=== PATIENT | female | born 1950 | race Caucasian/White ===

== ENCOUNTER → 2017-01-30 13:00 | Emergency (ER) | payer OTHER ==
[~2017-01-30 13:00] MED LIST: ACETAMINOPHEN PO; ADVIL200 M1 PO; ALISKIREN PO; APRESOLINE PO; ASCORBIC ACID500 MG PO; ASPIRIN PO; ASPIRINEC PO; AVAPRO PO; CLONIDINE HCL0.1 MG PO; CLONIDINE PO; COMBIVENT INH14.7 GM INH; DICYCLOMINE HCL20 MG PO; DIOVAN PO; DIOVAN160 MG PO; DIOVAN320 MG PO; FAMOTIDINE PO; HYDROCHLOROTHIAZIDE PO; HYDROCODON-ACE1 EAC5 PO; HYDROCODONE-APA1 T49 PO; HYDROCODONE-APA1 T54 PO; IBUPROFEN PO; LASIX20 MG PO; LEVAQUIN PO; LIDODERM30 EA TOP; LIPITOR PO; LISINOPRIL PO; LISINOPRIL10 MG PO; LOPRESSOR PO; LORTAB 10-5001 EACH PO; LORTAB 10/500 T1 TAB PO; LOSARTAN POTASS50 MG PO; MACROBID100 MG PO; MUCINEX D ER T1 EACH PO; MUCINEX DM1 TAB.SR . PO; MUCINEX PO; NICOTINE T1 PATCH .2 TOP; NORCO 10-325 TA1 TAB PO; OXYCONTIN PO; OXYCONTIN20 MG PO; PLAVIX PO; RITE-AID PHARMACY; TEKTURNA; TEKTURNA HCT 301 TAB PO; TEKTURNA PO; TEKTURNA300 MG PO; TOPROL XL PO; VICODIN 5/500 T1 TAB PO; VIT B-12 PO; VIT C PO; VITAMIN C; VITAMIN C500 MG PO; [UNRECOGNIZED DRUG - OTHER]
== END | disposition left against medical advice (07) ==
LOC: CED 13:00
DX: Z53.21 Procedure and treatment not carried out due to patient leaving prior to being seen by health care provider (principal)

== ENCOUNTER → 2017-03-17 | Outpatient (CLI) | payer OTHER ==
[2017-03-17 11:56] LABS: ALBUMIN SERUM 4.1 g/dL (3.5-5.0); BILIRUBIN,TOTAL 0.1 mg/dL (0.2-2.0); CALCIUM SERUM 8.4 mg/dL (8.4-10.2); GLOM FILT RATE Estimated 57.5 mL/min (>60); POTASSIUM 3.9 mmol/L (3.5-5.1); PROTEIN TOTAL SERUM 7.3 g/dL (6.0-8.3)
== END | disposition home or self-care (01) ==
LOC: SLAB 11:08
PROVIDERS: Internal Medicine Nephrology
DX: N18.3 Chronic kidney disease, stage 3 (moderate) (principal)
CPT/HCPCS: 36415; 80053

== ENCOUNTER → 2017-06-22 | Day surgery (SDC) | payer OTHER ==
--- NOTE | ~2017-06-22 | OR ---
Unit #: [id number] #: [id number] Patient: DUTCH GOMES [id number] [address] [address] [id number] MR#: [id number] NAME: DUTCH GOMES ROOM: Date of Procedure: 06/22/2017 Admission Date: 06/22/2017 Surgeon: Dru Snyder M.D. : 1950 Attending Physician: Dru Snyder M.D. Primary Care Physician: Reese Brown M.D. OPERATIVE REPORT JOB NOTE: CC: [facility] PREOPERATIVE DIAGNOSES Herniated nucleus pulposus, back pain, radiculopathy, degenerative spine disease. POSTOPERATIVE DIAGNOSES Herniated nucleus pulposus, back pain, radiculopathy, degenerative spine disease. PROCEDURE PERFORMED Lumbar epidural steroid injection with intravenous sedation and fluoroscopic guidance for needle localization. INDICATIONS FOR PROCEDURE The patient is a 67-year-old female with return of back, bilateral hip pain, some leg pain due to known multilevel multifactorial severe degenerative disk and spine disease. She has left-sided L3-L4 disk herniation and right-sided L4-L5 disk herniation, broad-based bulge with bilateral facet disease, severe degeneration at L5-S1 level bilaterally, effacement at L5 nerve roots. She is a poor surgical candidate. Based on history, pathology, and symptomatology, plan is to repeat epidural steroid injection. DESCRIPTION OF PROCEDURE The patient was placed in a seated position. Standard monitors were applied. 2 mg of Versed were given for sedation and anxiolysis, which were adequate. Vital signs remained stable. Sterile prep and drape then of the lumbar area was performed. The skin at the L4-L5 level was localized with 1% lidocaine. An 18-gauge MED[employer]onte[employer] needle was then advanced via loss of resistance technique and fluoroscopic guidance in toward the epidural space. After confirming proper positioning with fluoroscopy and radiographic contrast, a dose of 80 mg of Depo-Medrol and 4 mL of 0.125% bupivacaine were deposited. The patient tolerated the procedure otherwise well and was discharged to the recovery room in stable condition. Dictated by... Dru Snyder M.D. LHP/modl Unit #: [id number] #: [id number] Patient: DUTCH GOMES TD: 06/22/2017 12:39 JOB #: [id number] OPERATIVE REPORT Page 1 of 1 X Dru Snyder MD X PROCEDURE OPERATIVE NOTE
== END | disposition home or self-care (01) ==
LOC: CCSC 06-10 11:30
DX: M51.16 Intervertebral disc disorders with radiculopathy, lumbar region (principal); M53.86 Other specified dorsopathies, lumbar region; I10 Essential (primary) hypertension; Z88.0 Allergy status to penicillin; Z88.1 Allergy status to other antibiotic agents; Z88.5 Allergy status to narcotic agent; Z88.8 Allergy status to other drugs, medicaments and biological substances; Z79.899 Other long term (current) drug therapy
CPT/HCPCS: J1040; J2250